=== PATIENT | male | born 1935 | race Caucasian/White ===

== ENCOUNTER 2016-09-30 14:02 | Emergency (ER) | payer MEDICARE ==
--- NOTE | 2016-09-30 15:10 | ED ---
Complaint/Male - History of Current Complaint Chief Complaint: EDUrogenitalProblems Time Seen by Provider: 09/30/16 14:33 Hx Obtained From: Patient Onset/Duration: Sudden Onset Timing: Constant Severity Initially: Moderate Severity Currently: Moderate Location: Suprapubic Character: Sharp, Constant Pressure Aggravating Factor(s): Voiding, Straining Associated Signs And Symptoms: Dysuria - Risk Factors Testicular Torsion: Negative - Allergies/Home Medications Allergies/Adverse Reactions: Allergies Allergy/AdvReac Type Severity Reaction Status Date / Time Penicillins Allergy Unknown Verified 08/18/15 18:53 Reaction Details PMH/Surg Hx/FS Hx/Imm Hx Previously Healthy: Yes GI History: Reports: Other GI Disorders - current dx: UGI bleed Sensory History: Reports: Hx Cataracts - removed, Hx Hearing Problem Opthamlomology History: Reports: Hx Cataracts - removed - Cancer History Cancer Type, Location and Year: Prostate present but not needing treatment. - Immunization History Hx Pertussis Vaccination: No Immunizations Up to Date: Unable to Obtain/Confirm Infectious Disease History: No Infectious Disease History: Denies: Traveled Outside the [place] in Last 30 Days - Social History Occupation: Unemployed, Retired Lives: With Family Alcohol Use: None Hx Substance Use: No Substance Use Type: Reports: None Hx Tobacco Use: No Smoking Status (MU): Never Smoked Tobacco Review Of Systems Constitutional: Positive: Negative Respiratory: Positive: Negative Cardiovascular: Positive: Negative Genitourinary: Positive: Dysuria, Hematuria, Other - umable to void x 13 hours Musculoskeletal: Positive: Negative Neurological: Positive: Negative Psychological: Positive: Negative All Other Systems Reviewed And Are Negative: Yes Physical Exam Triage Information Reviewed: Yes Vital Signs On Initial Exam: Initial Vitals Temp Pulse Resp BP Pulse Ox 98.8 F 74 17 119/70 97 09/30/16 14:16 09/30/16 14:16 09/30/16 14:16 09/30/16 14:16 09/30/16 14:16 Vital Signs Reviewed: Yes Appearance: Positive: Well-Appearing, No Pain Distress, Well-Nourished Skin: Positive: Warm, Skin Color Reflects Adequate Perfusion Head/Face: Positive: Normal Head/Face Inspection Eyes: Positive: EOMI, AGA, Conjunctiva Clear Neck: Positive: Supple, No Lymphadenopathy Respiratory/Lung Sounds: Positive: Clear to Auscultation, Breath Sounds Present Musculoskeletal: Positive: Normal, Strength/ROM Intact Neurological: Positive: Sensory/Motor Intact, Alert, Oriented to Person Place, Time, Speech Normal Psychiatric: Positive: Normal AVPU Assessment: Alert - [place] Coma Scale Coma Scale Total: 15 Diagnostics - Vital Signs Vital Signs Temp Pulse Resp BP Pulse Ox 09/30/16 14:17 98.8 F 74 17 119/70 97 09/30/16 14:16 98.8 F 74 17 119/70 97 - Laboratory Lab Statement: Any lab studies that have been ordered have been reviewed, and results considered in the medical decision making process. Complaint Male Course/Dx - Course Course Of Treatment: Dr. Wallis called at 2:50pm who advised 16 caudet catheter. This was attempted at [place] and called [place] back to make him aware. Unable to void since 2am. [address] Hartley in [place] who has since retired. He has been transferred here for a urology consult after 4 failed attempts at a caudet catheter insertion. Patient began to urinate while in ED. Spoke with Dr. Wallis who recommended US of bladder and discharge home. Family reluctant but agrees. Explained to patient and family we would not be able to keep him in the ED for "possible obstruction in the future" as since he is urinating now, this is no longer an emergent situation. Dr Wallis agrees to see patient tomorrow morning at 8am. Signed out to Sarah Gonsales PA-C at 530pm. - Differential Dx/Diagnosis Differential Diagnosis/HQI/PQRI: Ureteral Calculi, Urinary Tract Infection, Other - urinary obstruction Provider Diagnoses: Urinary Obstruction
--- NOTE | 2016-09-30 18:13 | RAD ---
Indication: Hematuria. Real-time sonography of the urinary bladder was performed. The prevoid volume is 59 mL. The postvoid volume is 16 mL. The bladder wall measures 5 mm. No bladder wall masses are noted. The ureteral jets are not visualized. The prostate measures 4.6 x 3.4 x 5.3 cm with a volume of 44 mL. There is an enlarged prostate present. 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 No bladder wall masses are noted although ureteral jets are not identified. Post void residual of 15 mL which is negligible.
[2016-09-30 18:49] VITALS: BP 123/65
[2016-09-30 19:15] LABS: Urine Bacteria Absent (Absent); Urine Bilirubin Negative (Negative); Urine Glucose Negative (Negative); Urine Nitrite Negative (Negative)
== END 2016-09-30 18:57 | disposition home or self-care (01) ==
LOC: ED 14:02
DX: N13.9 Obstructive and reflux uropathy, unspecified (principal); Z88.0 Allergy status to penicillin
CPT/HCPCS: 76857; 81003; 81015; 87086; 99282

== ENCOUNTER 2016-10-15 07:19 | Emergency (ER) | payer MEDICARE ==
[2016-10-15] MEDS ORDERED: NS 0.9% 1000 ML* 1,000 ML IV ONE (07:41)
[2016-10-15 08:17] LABS: Urine Bacteria Absent (Absent); Urine Bilirubin Negative (Negative); Urine Glucose Negative (Negative); Urine Nitrite Negative (Negative)
[2016-10-15 08:33] LABS: Hematocrit 42 % (42-52); Hemoglobin 13.5 g/dl (14.0-18.0); Mean Corpuscular HGB Conc 32 g/dl (31-36); Mean Corpuscular Hemoglobin 27 pg (27-31); Mean Corpuscular Volume 84 fL (80-94); Mean Platelet Volume 8 um3 (7.4-10.4); Red Cell Distribution Width 19 % (10.5-15); White Blood Count 10.1 10^3/ul (3.5-10.8)
[2016-10-15 08:34] LABS: Add Diff/Slide Review? Slide Review Added; Comments Flag Yes
[2016-10-15 08:49] LABS: Albumin 3.5 g/dL (3.2-5.2); BUN/Creatinine Ratio 19.8 (8-20); C Reactive Protein 35.99 mg/L (< 5.00); Calcium 9.1 mg/dL (8.6-10.3); EGFR African American 102.6 (>60); EGFR Non-African American 79.8 (>60); Potassium 4.3 mmol/L (3.5-5.0); Total Bilirubin 0.9 mg/dL (0.2-1.0); Total Protein 6.5 g/dL (6.4-8.9)
--- NOTE | 2016-10-15 09:09 | RAD ---
Indication: Left-sided scrotal pain. Real-time sonography of the scrotum was performed. The right testis measures 3.9 x 1.9 x 2.6 cm. A cyst is noted in the upper pole of the right testis measuring 2 mm. Epididymis measures 10 x 10 mm. Doppler interrogation demonstrates flow in the right testis. No solid lesions are noted. Small right hydrocele is noted. The left testis measures 3.3 x 2.2 x 2.4 cm. Normal flow is noted in the left testis. Moderate-sized hydrocele is noted on the left. The epididymis measures 8 x 10 mm. IMPRESSION: No intratesticular masses are noted. Normal flow is noted in both testis. Bilateral hydroceles are noted worse on the left than on the right.
[2016-10-15] MEDS ORDERED: Levofloxacin 750 MG IVPREMIX(* 750 MG/150 ML BAG IVPB ONE (09:51)
[2016-10-15] MEDS ORDERED: Ketorolac INJ* 30 MG/ML 1 ML VIAL IV PUSH ONE (09:53)
[2016-10-15 12:17] VITALS: BP 126/63
--- NOTE | 2016-10-16 08:51 | ED ---
Amol Self Alfonso, scribed for Valente Baez MD on 10/15/16 at 0741 . GI/ HPI - HPI Summary HPI Summary: This patient is an 80 year old M presenting to [facility] accompanied by and daughter with a chief complaint of testicular pain since yesterday. He denies pain radiation to back. Patient states my prostate is all swelled. Pt rates the pain 5/10 in severity. Symptoms aggravated and alleviated by nothing. Pt reports penile swelling, and dysuria. Pt denies fever, chills, CP, SOB, abdominal pain. Pt was discharged from [facility] 15 days ago with a provider diagnosis of urinary obstruction. Family reports he has an appointment to see Dr. Wallis (urologist) in 10 days. - History of Current Complaint Chief Complaint: EDUrogenitalProblems Time Seen by Provider: 10/15/16 07:36 Stated Complaint: SWELLING IN genital AREA Hx Obtained From: Patient, Family/[employer]pper - and daughter Onset/Duration: Started Days Ago - Yesterday, Still Present Timing: Constant Severity: Moderate Current Severity: Moderate Pain Intensity: 5 - 5/10 Additional Locations for Males: Testicles - Testicular pain Associated Signs and Symptoms: Positive: Dysuria, Other: - Negative SOB. Negative: Fever, Chills, Abdominal Pain, Chest Pain Additional Signs & Symptoms: Positive: Penile Swelling - Additional Pertinent History Primary Care Physician: AYESHA - Allergy/Home Medications Allergies/Adverse Reactions: Allergies Allergy/AdvReac Type Severity Reaction Status Date / Time Penicillins Allergy Unknown Verified 08/18/15 18:53 Reaction Details PMH/Surg Hx/FS Hx/Imm Hx GI History: Reports: Other GI Disorders - current dx: UGI bleed Sensory History: Reports: Hx Cataracts - removed, Hx Hearing Problem Opthamlomology History: Reports: Hx Cataracts - removed - Cancer History Cancer Type, Location and Year: Prostate present but not needing treatment. Infectious Disease History: Denies: Traveled Outside the [place] in Last 30 Days - Family History Known Family History: Negative: Cardiac Disease - Social History Alcohol Use: None Hx Substance Use: No Substance Use Type: Reports: None Hx Tobacco Use: No Smoking Status (MU): Never Smoked Tobacco Review of Systems Negative: Fever, Chills Negative: Chest Pain Negative: Shortness Of Breath Negative: Abdominal Pain Positive: other - Positive testicular pain, penile swelling, and dysuria All Other Systems Reviewed And Are Negative: Yes Physical Exam - Summary Physical Exam Summary: VITAL SIGNS: Reviewed. GENERAL: Patient is an obese elderly male who is lying comfortable in the stretcher. Patient is not in any acute respiratory distress. HEAD AND FACE: Normocephalic and atraumatic. EYES: PERRLA, EOMI x 2, No injected conjunctiva. EARS: Hearing grossly intact. Ear canals and tympanic membranes are WNL. MOUTH: Oropharynx within normal limits. NECK: Supple, trachea is midline, no adenopathy, no JVD. CHEST: Symmetric, no tenderness at palpation LUNGS: Clear to auscultation bilaterally. No wheezing or crackles. CVS: RRR, S1 and S2 present, no murmurs or gallops appreciated. ABDOMEN: Soft, obese, non-tender. Distending. Positive bowel sounds. No rebound no guarding, and no masses palpated. No abdominal bruit or pulsations. EXTREMITIES: FROM in all major joints, no edema, no cyanosis or clubbing. NEURO: Alert and oriented x 3. No acute neurological deficits. Speech is normal. SKIN: Dry and warm : Uncircumcised penis, both testicles are descended. No masses are appreciated. Triage Information Reviewed: Yes Vital Signs On Initial Exam: Initial Vitals Temp Pulse Resp BP Pulse Ox 97.5 F 71 16 126/79 96 10/15/16 07:27 10/15/16 07:27 10/15/16 07:27 10/15/16 07:27 10/15/16 07:27 Vital Signs Reviewed: Yes Diagnostics - Vital Signs Vital Signs Temp Pulse Resp BP Pulse Ox 10/15/16 07:27 97.5 F 71 16 126/79 96 - Laboratory Lab Results: Lab Results 10/15/16 10/15/16 10/15/16 Range/Units 08:00 08:28 08:28 WBC 10.1 (3.5-10.8) 10^3/ul RBC 5.00 (4.0-5.4) 10^6/ul Hgb 13.5 L (14.0-18.0) g/dl Hct 42 (42-52) % MCV 84 (80-94) fL MCH 27 (27-31) pg MCHC 32 (31-36) g/dl RDW 19 H (10.5-15) % Plt Count 195 (150-450) 10^3/ul MPV 8 (7.4-10.4) um3 Neut % (Auto) 73.5 (38-83) % Lymph % (Auto) 16.8 L (25-47) % [place] % (Auto) 7.5 (1-9) % Eos % (Auto) 1.4 (0-6) % Baso % (Auto) 0.8 (0-2) % Absolute Neuts (auto) 7.4 (1.5-7.7) 10^3/ul Absolute Lymphs (auto) 1.7 (1.0-4.8) 10^3/ul Absolute Monos (auto) 0.8 (0-0.8) 10^3/ul Absolute Eos (auto) 0.1 (0-0.6) 10^3/ul Absolute Basos (auto) 0.1 (0-0.2) 10^3/ul Absolute Nucleated RBC 0 10^3/ul Nucleated RBC % 0 Sodium 135 (133-145) mmol/L Potassium 4.3 (3.5-5.0) mmol/L Chloride 104 (101-111) mmol/L Carbon Dioxide 25 (22-32) mmol/L Anion Gap 6 (2-11) mmol/L BUN 18 (6-24) mg/dL Creatinine 0.91 (0.67-1.17) mg/dL Est GFR ( Amer) 102.6 (>60) Est GFR (Non-Af Amer) 79.8 (>60) BUN/Creatinine Ratio 19.8 (8-20) Glucose 118 H (70-100) mg/dL Lactic Acid (0.5-2.0) mmol/L Calcium 9.1 (8.6-10.3) mg/dL Total Bilirubin 0.90 (0.2-1.0) mg/dL AST 12 L (13-39) U/L ALT 12 (7-52) U/L Alkaline Phosphatase 81 (34-104) U/L C-Reactive Protein 35.99 H (< 5.00) mg/L Total Protein 6.5 (6.4-8.9) g/dL Albumin 3.5 (3.2-5.2) g/dL Globulin 3.0 (2-4) g/dL Albumin/Globulin Ratio 1.2 (1-3) Urine Color Yellow Urine Appearance Clear Urine pH 5.0 (5-9) Ur Specific Wallis 1.017 (1.010-1.030) Urine Protein Negative (Negative) Urine Ketones Negative (Negative) Urine Blood 1+ H (Negative) Urine Nitrate Negative (Negative) Urine Bilirubin Negative (Negative) Urine Urobilinogen Negative (Negative) Ur Leukocyte Esterase 1+ H (Negative) Urine WBC (Auto) 1+(6-10/hpf) H (Absent) Urine RBC (Auto) Trace(0-2/hpf) (Absent) Ur Squamous Epith Cells Present H (Absent) Urine Bacteria Absent (Absent) Urine Glucose Negative (Negative) 10/15/16 Range/Units 08:28 WBC (3.5-10.8) 10^3/ul RBC (4.0-5.4) 10^6/ul Hgb (14.0-18.0) g/dl Hct (42-52) % MCV (80-94) fL MCH (27-31) pg MCHC (31-36) g/dl RDW (10.5-15) % Plt Count (150-450) 10^3/ul MPV (7.4-10.4) um3 Neut % (Auto) (38-83) % Lymph % (Auto) (25-47) % [place] % (Auto) (1-9) % Eos % (Auto) (0-6) % Baso % (Auto) (0-2) % Absolute Neuts (auto) (1.5-7.7) 10^3/ul Absolute Lymphs (auto) (1.0-4.8) 10^3/ul Absolute Monos (auto) (0-0.8) 10^3/ul Absolute Eos (auto) (0-0.6) 10^3/ul Absolute Basos (auto) (0-0.2) 10^3/ul Absolute Nucleated RBC 10^3/ul Nucleated RBC % Sodium (133-145) mmol/L Potassium (3.5-5.0) mmol/L Chloride (101-111) mmol/L Carbon Dioxide (22-32) mmol/L Anion Gap (2-11) mmol/L BUN (6-24) mg/dL Creatinine (0.67-1.17) mg/dL Est GFR ( Amer) (>60) Est GFR (Non-Af Amer) (>60) BUN/Creatinine Ratio (8-20) Glucose (70-100) mg/dL Lactic Acid 0.9 (0.5-2.0) mmol/L Calcium (8.6-10.3) mg/dL Total Bilirubin (0.2-1.0) mg/dL AST (13-39) U/L ALT (7-52) U/L Alkaline Phosphatase (34-104) U/L C-Reactive Protein (< 5.00) mg/L Total Protein (6.4-8.9) g/dL Albumin (3.2-5.2) g/dL Globulin (2-4) g/dL Albumin/Globulin Ratio (1-3) Urine Color Urine Appearance Urine pH (5-9) Ur Specific Wallis (1.010-1.030) Urine Protein (Negative) Urine Ketones (Negative) Urine Blood (Negative) Urine Nitrate (Negative) Urine Bilirubin (Negative) Urine Urobilinogen (Negative) Ur Leukocyte Esterase (Negative) Urine WBC (Auto) (Absent) Urine RBC (Auto) (Absent) Ur Squamous Epith Cells (Absent) Urine Bacteria (Absent) Urine Glucose (Negative) Result Diagrams: 10/15/16 08:28 10/15/16 08:28 Lab Statement: Any lab studies that have been ordered have been reviewed, and results considered in the medical decision making process. - Additional Comments Diagnostic Additional Comments: Testicular US reveals, per radiologist, No intratesticular masses are noted. Normal flow is noted in both testis. Bilateral hydroceles are noted worse on the left than on the right. Re-Evaluation - Re-Evaluation First Eval Re-Evaluation Time: 10:00 Change: Improved Comment: Patient reports feeling better. I offered to do a rectal exam and he refused. Labs reviewed with patient and family. They agree with the discharge plan. GIGU Course/Dx - Course Course Of Treatment: This patient is an 80 year old M presenting to [facility] accompanied by and daughter with a chief complaint of testicular pain since yesterday. He denies pain radiation to back. Patient states my prostate is all swelled. Pt rates the pain 5/10 in severity. Symptoms aggravated and alleviated by nothing. Pt reports penile swelling, and dysuria. Pt denies fever , chills, CP, SOB, abdominal pain. Pt was discharged from [facility] 15 days ago with a provider diagnosis of urinary obstruction. Family reports he has an appointment to see Dr. Wallis (urologist) in 10 days. Assessment/Plan: Test results without significant abnormalities expect for glucose of 118 and CRP of 35.99. Urinalysis contaminated, so will send for urine cultures. Testicular US reveals, per radiologist, No intratesticular masses are noted. Normal flow is noted in both testis. Bilateral hydroceles are noted worse on the left than on the right. Patient refused rectal exam. I discussed findings and test results with Dr. Wallis (urologist) who recommended one dose of Levaquin in the ED and discharge home with Bactrim and follow up at his office, since we believe the patient may have acute prostatitis. He will follow up with Dr. Wallis in the next few days. Patient was given Toradol for the pain. In reassessment, patient is feeling better and is comfortable. He was instructed to return to the ED for fever, chills, N/V, or any other symptoms. He and his family understand and agree. Patient is hemodynamically stable and A&Ox3. I discussed all the findings and test results with the patient. Patient was instructed to return to the emergency room immediately if any of the symptoms return or worsens. Plan of care was discussed with the patient and understands and agrees. All questions were answered at patient satisfaction. There were no further complaints or concerns. Lung exam before discharge: CTA B/L. Good air exchange. No wheezing or crackles heard. CVS: S1 and S2 present. No murmurs appreciated. Patient is alert and oriented x 3. Patient is hemodynamically stable. Patient will be discharged home with follow up PCP in the next 2-3 days - Diagnoses Differential Diagnoses - Male: Hemorrhoids, Urinary Tract Infection Provider Diagnoses: Prostatitis - Physician Notifications Discussed Care Of Patient With: Too Wallis Time Discussed With Above Provider: 09:43 Instructed by Provider To: Other - Consulted Dr. Wallis (urologist) who recommended one dose of leviquin in the ED and discharge home with bactrim and follow up at his office. Discharge - Discharge Plan Condition: Stable Disposition: HOME Prescriptions: Sulfamethox/Trimethoprim DS* [Bactrim DS 800/160 TAB*] 1 tab PO BID #20 tab Patient Education Materials: Prostatitis (ED) Referrals: Cody Antonio MD [Primary Care Provider] - 2 Days The documentation as recorded by the Amol lake Alfonso accurately reflects the service I personally performed and the decisions made by Nestor coleman Walter, MD.
== END 2016-10-15 12:19 | disposition home or self-care (01) ==
LOC: ED 07:19
DX: N41.9 Inflammatory disease of prostate, unspecified (principal); Z88.0 Allergy status to penicillin; N43.3 Hydrocele, unspecified
CPT/HCPCS: 36415; 76870; 80053; 81003; 81015; 83605; 85025; 86140; 87086; 96374; 96375; 99283; J1885